=== PATIENT | female | born 1945 | race Caucasian/White ===

== ENCOUNTER 2017-03-11 11:49 | Inpatient (IN) | payer MEDICARE ==
[~2017-03-11] VITALS: Ht 154.9 cm; Wt 45.4 kg
[2017-03-11 11:59] VITALS: BP 153/83
[2017-03-11] MEDS ORDERED: PLEASE ENTER HEIGHT AND WEIGHT MC SCH (12:30)
[2017-03-11 13:21] LABS: ASPARTATE AMINO TRANSFERASE 16 U/L (15-37); BLOOD UREA NITROGEN 11 mg/dL (7-18)
[2017-03-11] MEDS ORDERED: ZOLPIDEM 5MG TABLET PO PRN (14:30)
[2017-03-11] MEDS ORDERED: OXYcodone/APAP 5/325MG TABLET PO PRN (14:30)
[2017-03-11] MEDS ORDERED: ACETAMINOPHEN 650 MG/20.3 ML UDC PO PRN (16:30)
[2017-03-11] MEDS ORDERED: DIPHENHYDRAMINE 25 MG CAPSULE PO PRN (16:30)
[2017-03-11] MEDS ORDERED: MAGNESIUM HYDROXIDE 8%, 30ML UDC PO PRN (16:30)
[2017-03-11] MEDS ORDERED: ONDANSETRON 2MG/ML, 2ML IV PRN (16:30)
[2017-03-11] MEDS ORDERED: ZOLPIDEM 10MG TABLET PO PRN (16:30)
[2017-03-11 19:30] VITALS: BP 154/74
[2017-03-11] MEDS: CEFAZOLIN PMX 2GM/50ML 50 ML IV SCH (20:32)
[2017-03-12 02:07] VITALS: BP 156/78
[2017-03-12] MEDS: CEFAZOLIN PMX 2GM/50ML 50 ML IV SCH ×3 (04:44→21:36)
[2017-03-12 05:59] LABS: C-REACTIVE PROTEIN, QUANT 3.8 mg/dL (0.02-0.49)
[2017-03-12 07:15] VITALS: BP 133/70
[2017-03-12 14:10] VITALS: BP 151/81
[2017-03-12] MEDS ORDERED: VANCOMYCIN PER PHARMACY MC PRN (14:30)
[2017-03-12] MEDS ORDERED: PHARMACOKINETIC CONSULTATION MC ONE (15:00)
[2017-03-12] MEDS ORDERED: PHARMACOKINETIC MONITORING MC PRN (15:00)
[2017-03-12] MEDS: VANCOMYCIN 800 MG in SODIUM CHLORIDE 0.9% 100 ML IV SCH (15:04)
[2017-03-12 18:52] VITALS: BP 115/64
[2017-03-13 03:24] VITALS: BP 116/71
[2017-03-13] MEDS: CEFAZOLIN PMX 2GM/50ML 50 ML IV SCH ×3 (05:02→21:14)
[2017-03-13 07:11] VITALS: BP 124/72
[2017-03-13 14:15] VITALS: BP 107/58
[2017-03-13] MEDS: VANCOMYCIN 800 MG in SODIUM CHLORIDE 0.9% 100 ML IV SCH (15:59)
[2017-03-13 21:06] VITALS: BP 108/75
[2017-03-14] MEDS: CEFAZOLIN PMX 2GM/50ML 50 ML IV SCH ×3 (05:07→21:59)
[2017-03-14 05:21] VITALS: BP 123/79
[2017-03-14 05:48] LABS: BLOOD UREA NITROGEN 15 mg/dL (7-18)
[2017-03-14] MEDS ORDERED: SODIUM CHLORIDE 0.9% 1,000 ML IV SCH (06:00)
[2017-03-14 06:27] LABS: DIFF TOTAL CELLS COUNTED 100 CELL DIFF
[2017-03-14 06:32] LABS: VERIFY COUNTS? YES
[2017-03-14 07:45] VITALS: BP 119/77
[2017-03-14] MEDS: VANCOMYCIN 800 MG in SODIUM CHLORIDE 0.9% 100 ML IV SCH (15:06)
[2017-03-14 15:21] VITALS: BP 114/70
[2017-03-14 21:02] VITALS: BP 111/69
[2017-03-15 01:43] VITALS: BP 114/69
[2017-03-15] MEDS: SODIUM CHLORIDE 0.9% 1,000 ML IV SCH ×3 (02:20→20:06)
[2017-03-15] MEDS: CEFAZOLIN PMX 2GM/50ML 50 ML IV SCH ×2 (04:58→17:59)
[2017-03-15] MEDS ORDERED: BUPIVACAINE 0.25% ONE (07:54)
[2017-03-15] MEDS ORDERED: VANCOMYCIN 500 MG ONE (07:54)
[2017-03-15] MEDS ORDERED: PROPOFOL 10 MG/ML, 20ML ONE (08:08)
[2017-03-15] MEDS ORDERED: ROCURONIUM 10 MG/ML ONE (08:08)
[2017-03-15] MEDS ORDERED: SUCCINYLCHOLINE 20 MG/ML, 10ML ONE (08:08)
[2017-03-15] MEDS ORDERED: HYDROcodone/APAP 5/325 TABLET PO PRN (11:30)
[2017-03-15] MEDS ORDERED: EPINEPHRINE 2 MG in SODIUM CHLORIDE 0.9% 248 ML IV PRN (12:30)
[2017-03-15] MEDS: VANCOMYCIN 800 MG in SODIUM CHLORIDE 0.9% 100 ML IV SCH (20:06)
[2017-03-15] MEDS ORDERED: MIDAZOLAM 1 MG/ML, 2ML IVPush PRN (21:30)
[2017-03-15] MEDS ORDERED: MORPHINE SULFATE 4 MG/ML, 1ML IVPush PRN (21:30)
[2017-03-15] MEDS: SODIUM CHLORIDE FLUSH 10ML SYR IVF SCH (22:35)
[2017-03-16] MEDS: CEFAZOLIN PMX 2GM/50ML 50 ML IV SCH ×3 (02:07→20:11)
[2017-03-16] MEDS: SODIUM CHLORIDE 0.9% 1,000 ML IV SCH ×3 (06:12→19:38)
[2017-03-16 06:53] VITALS: BP 119/63
[2017-03-16] MEDS: SODIUM CHLORIDE FLUSH 10ML SYR IVF SCH ×2 (10:06→20:11)
[2017-03-16 17:27] VITALS: BP 124/54
[2017-03-16 20:40] VITALS: BP 113/70
[2017-03-17 00:47] VITALS: BP 122/74
[2017-03-17] MEDS: SODIUM CHLORIDE 0.9% 1,000 ML IV SCH ×2 (04:00→12:00)
[2017-03-17] MEDS: CEFAZOLIN PMX 2GM/50ML 50 ML IV SCH (04:20)
[2017-03-17 09:36] VITALS: BP 118/58
[2017-03-17] MEDS: SODIUM CHLORIDE FLUSH 10ML SYR IVF SCH ×2 (10:46→21:00)
[2017-03-17] MEDS: ERTAPENEM 1 GM in SODIUM CHLORIDE 0.9% 50 ML IV SCH (10:46)
[2017-03-17 14:09] VITALS: BP 97/62
[2017-03-17 18:37] VITALS: BP 100/65
[2017-03-18 01:08] VITALS: BP 110/64
[2017-03-18 06:00] LABS: BLOOD UREA NITROGEN 13 mg/dL (7-18)
[2017-03-18 06:07] LABS: ASPARTATE AMINO TRANSFERASE 11 U/L (15-37)
[2017-03-18 07:52] VITALS: BP 128/81
[2017-03-18] MEDS: ERTAPENEM 1 GM in SODIUM CHLORIDE 0.9% 50 ML IV SCH (10:21)
[2017-03-18] MEDS: SODIUM CHLORIDE FLUSH 10ML SYR IVF SCH (10:21)
[2017-03-18 13:55] VITALS: BP 101/61
== END 2017-03-18 19:50 | disposition home or self-care (01) | DRG 261 ==
LOC: 5SO 11:49 → CCU 03-15 10:54 → 5SO 03-16 17:27
PROVIDERS: ADMIT Internal Medicine Cardiovascular Disease; ATTEND Internal Medicine Cardiovascular Disease
PROC: 02HV33Z Insertion of Infusion Device into Superior Vena Cava, Percutaneous Approach (ICD-10-PCS; principal; 2017-03-15)
PROC: B548ZZA Ultrasonography of Superior Vena Cava, Guidance (ICD-10-PCS; 2017-03-15)
PROC: 0JPT0PZ Removal of Cardiac Rhythm Related Device from Trunk Subcutaneous Tissue and Fascia, Open Approach (ICD-10-PCS; 2017-03-15)
PROC: 02PA3MZ Removal of Cardiac Lead from Heart, Percutaneous Approach (ICD-10-PCS; 2017-03-15)
DX: T82.7XXA Infection and inflammatory reaction due to other cardiac and vascular devices, implants and grafts, initial encounter (principal); Z68.1 Body mass index [BMI] 19.9 or less, adult; I44.2 Atrioventricular block, complete; D64.9 Anemia, unspecified; E88.09 Other disorders of plasma-protein metabolism, not elsewhere classified; B95.61 Methicillin susceptible Staphylococcus aureus infection as the cause of diseases classified elsewhere; R79.82 Elevated C-reactive protein (CRP); Y83.1 Surgical operation with implant of artificial internal device as the cause of abnormal reaction of the patient, or of later complication, without mention of misadventure at the time of the procedure; Z87.891 Personal history of nicotine dependence; Z98.41 Cataract extraction status, right eye; Z98.42 Cataract extraction status, left eye; Z90.89 Acquired absence of other organs; Z88.5 Allergy status to narcotic agent
CPT/HCPCS: 33233; 33235; 36415; 36569; 71010; 71020; 76937; 77001; 80048; 80053; 82330; 82803; 82947; 84132; 84295; 84443; 85014; 85025; 85610; 85651; 85730; 86140; 86850; 86900; 86923; 87040; 87070; 87077; 87081; 87147; 87186; 87205; 93308; 93312; 93321; 93325; C1894; J0690; J1335; J1644; J2250; J2405; J2704; J3010; J3370; J3475; J3480; J3490; C1751; J0330; J7030

== ENCOUNTER 2017-06-07 09:52 | Observation (INO) | payer MEDICARE ==
[~2017-06-07] VITALS: Ht 154.9 cm; Wt 53.2 kg
[2017-06-07] MEDS ORDERED: MIDAZOLAM 1 MG/ML, 5ML ONE (14:35)
[2017-06-07] MEDS ORDERED: CEFAZOLIN PMX 1GM/50ML 50 ML ONE (14:35)
[2017-06-07] MEDS ORDERED: LIDOCAINE 2%, 20ML ONE ×2 (14:35→15:02)
[2017-06-07] MEDS ORDERED: FENTANYL PF 100 MCG/2ML ONE (14:35)
[2017-06-07] MEDS ORDERED: CEFAZOLIN 1,000 MG ONE (14:35)
[2017-06-07] MEDS ORDERED: ACETAMINOPHEN 500 MG TABLET PO PRN (17:00)
[2017-06-07] MEDS: SODIUM CHLORIDE 0.9% 1,000 ML IV SCH ×2 (17:02→20:56)
[2017-06-07 17:32] VITALS: BP 174/80
[2017-06-07 17:38] VITALS: BP 142/90
[2017-06-07 18:23] VITALS: BP 153/71
[2017-06-07] MEDS: CEFAZOLIN PMX 1GM/50ML 50 ML IV SCH (23:08)
[2017-06-08 01:34] VITALS: BP 138/75
[2017-06-08] MEDS: SODIUM CHLORIDE 0.9% 1,000 ML IV SCH (04:41)
[2017-06-08] MEDS: CEFAZOLIN PMX 1GM/50ML 50 ML IV SCH (06:55)
[2017-06-08 07:30] VITALS: BP 163/95
== END 2017-06-08 12:28 | disposition home or self-care (01) ==
LOC: CACL 09:52 → 5SO 15:53 → CACL 16:50 → 5SO 16:50
PROVIDERS: ADMIT Internal Medicine Cardiovascular Disease; ATTEND Internal Medicine Cardiovascular Disease
DX: I44.2 Atrioventricular block, complete (principal); Q24.6 Congenital heart block
CPT/HCPCS: 33208; 71010; 96365; 96375; 99156; 99157; C1779; C1785; C1892; G0378; J0690; J2250; J3010; J3490

== ENCOUNTER → 2018-03-28 | Outpatient (CLI) | payer MEDICARE ==
[~2018-03-28] MED LIST: AMOX1TAB64 PO; CEPH-368 PO; DENIES; OMNIPAQUE 350 MG/ML, 75ML BOTTLE ONE; OXYC-302 PO
[2018-03-28 09:51] LABS: CREATININE 0.99 mg/dL (0.55-1.02)
== END ==
LOC: RAD 09:12
PROVIDERS: ATTEND Surgery
DX: Q25.49 Other congenital malformations of aorta (principal); N61.1 Abscess of the breast and nipple
CPT/HCPCS: 36415; 71260; 82565; Q9967